=== PATIENT | male | born 1955 | race Asian ===

== ENCOUNTER 2018-04-01 15:45 | Emergency (ER) | payer OTHER ==
[~2018-04-01] VITALS: Ht 170.2 cm; Wt 70.5 kg
[~2018-04-01 15:45] MED LIST: ASPI81TA42 PO; CAPT25TA3 PO; INSU100V SQ; INSU100V12 SQ; LOVA10TA2 PO; METF-446 PO; PIOG15TA6 PO
[2018-04-01 15:47] VITALS: BP 141/78
[2018-04-01 15:58] LABS: GLUCOSE,POINT OF CARE 252 MG/DL (70-110)
[2018-04-01] MEDS ORDERED: POVIDONE-IODINE 10% 15 ML SOLUTION UD TP ONE (16:15)
[2018-04-01] MEDS ORDERED: PERTUSS(ACELL),DIPH,TET VAC/PF 0.5 ML VIAL IM ONE (16:15)
[2018-04-01] MEDS ORDERED: CEPHALEXIN MONOHYDRATE 500 MG CAPSULE PO ONE (16:15)
[2018-04-01] MEDS ORDERED: LIDOCAINE 1% 10 ML VIAL INJ ONE (16:15)
[2018-04-01] MEDS ORDERED: IBUPROFEN 800 MG TABLET PO ONE (16:15)
[2018-04-01] MEDS ORDERED: SULFAMETHOX/TRIMETH DS 800-160 MG/TABLET PO ONE (16:15)
== END 2018-04-01 16:57 | disposition home or self-care (01) ==
LOC: EMS 15:45
DX: N49.2 Inflammatory disorders of scrotum (principal); E11.9 Type 2 diabetes mellitus without complications; E78.00 Pure hypercholesterolemia, unspecified; I10 Essential (primary) hypertension; Z79.82 Long term (current) use of aspirin; Z79.4 Long term (current) use of insulin; Z79.84 Long term (current) use of oral hypoglycemic drugs
CPT/HCPCS: 55100; 82962; 90471; 90715; 99284; J3490

== ENCOUNTER 2023-02-08 12:29 | Emergency (ER) | payer MEDICARE, OTHER ==
[~2023-02-08] VITALS: Ht 170.2 cm; Wt 65.9 kg
[~2023-02-08 12:29] MED LIST changes: +ASPI81TA40 PO; -ASPI81TA42 PO
[2023-02-08 12:45] LABS: COVID AG,FIA SOURCE NASAL SWAB
[2023-02-08 13:13] LABS: INFLUENZA TYPE A NEGATIVE FOR TYPE A (NEGATIVE); INFLUENZA TYPE B NEGATIVE FOR TYPE B (NEGATIVE)
[2023-02-08] MEDS ORDERED: IBUPROFEN 600 MG TABLET PO ONE (13:15)
[2023-02-08 13:35] LABS: SARS-COV2 (COVID) ANTIGEN,FIA Positive (Negative)
[2023-02-08] MEDS ORDERED: ACETAMINOPHEN 500 MG TABLET PO ONE (13:45)
[2023-02-08 14:39] VITALS: BP 119/51; PULSE 84; RESP 18; TEMP 99.4
== END 2023-02-08 15:28 | disposition home or self-care (01) ==
LOC: EMS 12:31
DX: U07.1 COVID-19 (principal); E11.9 Type 2 diabetes mellitus without complications; E78.00 Pure hypercholesterolemia, unspecified; I10 Essential (primary) hypertension; Z98.890 Other specified postprocedural states
CPT/HCPCS: 82962; 87804; 99283